=== PATIENT | male | born 1945 | race Two or more races ===

== ENCOUNTER 2023-07-12 17:04 | Emergency (ER) | payer MEDICARE, OTHER ==
[~2023-07-12] VITALS: Ht 177.8 cm; Wt 104.3 kg
[2023-07-12 17:12] VITALS: TEMP 98.4
[2023-07-12 19:32] LABS: APPEARANCE,URINE SLIGHTLY CLOUDY (CLEAR); BILIRUBIN,URINE NEGATIVE (NEGATIVE); BLOOD, URINE NEGATIVE Ery/uL (NEGATIVE); COLOR,URINE YELLOW (YELLOW); KETONES,URINE NEGATIVE (NEGATIVE); LEUKOCYTE ESTERASE ,URINE 3+ (NEGATIVE); NITRITE, URINE NEGATIVE (NEGATIVE); PROTEIN,URINE TRACE mg/dl (NEGATIVE); UGLUCOSE NEGATIVE (NEGATIVE)
[2023-07-12 19:36] LABS: PH,URINE >8.5 (5.0-8.0)
[2023-07-12 19:44] LABS: ADD URINE CULTURE YES; BACTERIA,URINE 4+ /HPF (None Seen); MUCUS,URINE Few /LPF (None Seen); RBC,URINE 0-2 /HPF (0-2); TRIPLE PHOSPHATE CRYSTAL,UR Few /HPF (None Seen); WBC,URINE 51-80 /HPF (0-3)
[2023-07-12] MEDS ORDERED: CEFTRIAXONE 1GM BAG (ER ONLY) 50 ML IV ONE (20:14)
[2023-07-12] MEDS ORDERED: CEFTRIAXONE 1GM BAG (ER ONLY) 1 GM/50 ML PIGGYBACK IV ONE (20:30)
[2023-07-12] MEDS ORDERED: CEFD300C3 PO (21:28)
[2023-07-12 22:30] VITALS: BP 145/80; O2SAT 97
== END 2023-07-12 22:55 | disposition home or self-care (01) ==
LOC: ER 17:11
DX: N39.0 Urinary tract infection, site not specified (principal); I10 Essential (primary) hypertension; E11.9 Type 2 diabetes mellitus without complications; Z79.899 Other long term (current) drug therapy
CPT/HCPCS: 99285; 96365; 87086; 81001; J7040; A6403; J0696

== ENCOUNTER 2024-02-28 08:19 | Emergency (ER) | payer MEDICARE, OTHER ==
[~2024-02-28] VITALS: Ht 182.9 cm; Wt 95.3 kg
[~2024-02-28 08:19] MED LIST: CEFD300C3 PO
[2024-02-28] MEDS ORDERED: CIPROFLOXACIN HCL 500 MG TABLET ONE (08:54)
[2024-02-28] MEDS: CIPROFLOXACIN HCL 500 MG TABLET PO ONE (08:57)
[2024-02-28] MEDS ORDERED: CIPR-262 PO (09:01)
[2024-02-28 09:31] LABS: APPEARANCE,URINE CLEAR (CLEAR); BILIRUBIN,URINE NEGATIVE (NEGATIVE); BLOOD, URINE NEGATIVE Ery/uL (NEGATIVE); COLOR,URINE YELLOW (YELLOW); KETONES,URINE NEGATIVE (NEGATIVE); LEUKOCYTE ESTERASE ,URINE NEGATIVE (NEGATIVE); NITRITE, URINE NEGATIVE (NEGATIVE); PROTEIN,URINE NEGATIVE (NEGATIVE); UGLUCOSE NEGATIVE (NEGATIVE); UROBILINOGEN,URINE 0.2 EU/dL (0.2)
[2024-02-28 10:54] VITALS: BP 141/71; TEMP 97.9; O2SAT 99
== END 2024-02-28 10:55 ==
LOC: ER 08:31
DX: N39.0 Urinary tract infection, site not specified (principal); I10 Essential (primary) hypertension; Z85.46 Personal history of malignant neoplasm of prostate
CPT/HCPCS: 87086-TC